=== PATIENT | female | born 1985 | race Two or more races ===

== ENCOUNTER 2022-05-26 15:26 | Emergency (ER) | payer MEDICAID, OTHER ==
[~2022-05-26] VITALS: Ht 175.3 cm; Wt 85.0 kg
[2022-05-26] MEDS ORDERED: CLINDAMYCIN 300MG IV 50 ML IV ONE (17:00)
[2022-05-26] MEDS ORDERED: HYDROcodone-ACET 5/325MG TAB PO ONE (17:00)
[2022-05-26 17:31] LABS: Basophils # (auto) 0.1 10 ^3/uL (0-0.2); Eosinophils # (auto) 0.8 10 ^3/uL (0-0.8); Monocytes # (auto) 1.3 10 ^3/uL (0-1.3); Nucleated Red Blood Cells % 0.1 %
[2022-05-26 17:33] LABS: Eosinophils % (auto) 6.7 % (0.0-7.0); Hematocrit 48.7 % (36.0-46.0); Hemoglobin 16.2 g/dL (12.2-16.2); Lymphocytes % (auto) 17.2 % (10.0-50.0); Mean Corpuscular Hemoglobin 26.2 pg (28.0-32.0); Mean Corpuscular Hgb Conc. 33.2 g/dL (32.0-36.0); Mean Corpuscular Volume 78.7 fL (80.0-100.0); Monocytes % (auto) 11.2 % (0.0-12.0); Neutrophils # (auto) 7.4 10 ^3/uL (1.6-8.6); Neutrophils % (auto) 63.9 % (37.0-80.0); Red Blood Cells 6.18 10^6/uL (4.0-5.20); Red Cell Distribution Width 14.4 % (11.8-14.3); White Blood Cell 11.6 10^3/uL (4.4-10.8)
[2022-05-26 17:56] LABS: Albumin 3.8 g/dL (3.4-5.0); BUN/Creatinine Ratio 11.7; Potassium 3.1 mmol/L (3.5-5.1)
[2022-05-26 17:58] LABS: Bilirubin, Total 0.8 mg/dL (0.2-1.0); Total Protein 8.2 g/dL (6.4-8.2)
[2022-05-26] MEDS ORDERED: POTASSIUM EFFERVESENT TAB 25 MEQ PO ONE (19:15)
[2022-05-26] MEDS ORDERED: SODIUM CHLORIDE 0.9% 1,000 ML IV ONE (19:15)
[2022-05-26] MEDS ORDERED: MORPHINE SULFATE INJ 2 MG/ml SYRG IV ONE (20:30)
[2022-05-26] MEDS ORDERED: ACETAMINOPHEN 325 MG TAB PO ONE (20:30)
[2022-05-26 20:32] VITALS: BP 190/118
[2022-05-26] MEDS ORDERED: HYDR-4902 PO (21:54)
[2022-05-26] MEDS ORDERED: CEPH-510 PO (21:54)
== END 2022-05-26 20:45 | disposition left against medical advice (07) ==
LOC: ER 15:26
DX: L03.011 Cellulitis of right finger (principal); F17.210 Nicotine dependence, cigarettes, uncomplicated; I10 Essential (primary) hypertension
CPT/HCPCS: 36415; 73130; 80053; 83605; 85025; 87040; 96361; 96365; 96375; 99285; J2270; J3490; J7030